=== PATIENT | male | born 1970 | race Caucasian/White ===

== ENCOUNTER 2022-01-02 22:59 | Observation (INO) ==
[2022-01-03] MEDS ORDERED: Perflutren Lipid Microsphere 1.3 ML in 0.9 % Sodium Chloride 8.7 ML IVP PRN (03:30)
[2022-01-03 03:58] LABS: Hematocrit 41.4 % (37.5-50.1); Hemoglobin 14.2 g/dL (12.9-16.9); Mean Corpuscular HGB Conc 34.3 g/dL (31.6-35.5); Mean Corpuscular Hemoglobin 32.1 pg (28.0-33.3); Mean Corpuscular Volume 93.7 fL (83.0-100.0); Mean Platelet Volume 9.6 fL (9.4-12.4); Platelet Count 129 K/mcL (140-400); Red Blood Count 4.42 M/mcL (4.19-5.50); Red Cell Distribution Width 12.6 % (11.5-14.5); White Blood Count 13.5 K/mcL (4.3-11.1)
[2022-01-03] MEDS ORDERED: Naloxone 0.4 MG/ML INJ IVP PRN (04:16)
[2022-01-03] MEDS ORDERED: Ondansetron 4 MG/2 ML VIAL IVP PRN (04:27)
[2022-01-03] MEDS ORDERED: *HR* LORazepam 2 MG/ML VIAL IVP ONE (04:28)
[2022-01-03 05:08] LABS: BUN/Creatinine Ratio 17 (6-26); Blood Urea Nitrogen 13 mg/dL (6-20); C-Reactive Protein 11 mg/L (Less than 10); Calcium 8.8 mg/dL (8.6-10.3); Carbon Dioxide 22 mEq/L (23-29); Chloride 112 mEq/L (98-107); Chol/HDL Ratio 2.8 (0-4.9); Cholesterol 108 mg/dL (< 200); Creatine Kinase 14975 Units/L (30-223); Glucose 97 mg/dL (70-105); HDL Cholesterol 39 mg/dL (40-59); LDL Cholesterol,Calculated 55 mg/dL (< 100); Magnesium 1.6 mg/dL (1.6-2.6); Osmolality,Calculated 288 (280-300); Potassium 4.1 mEq/L (3.5-5.1); Sodium 139 mEq/L (136-145); Triglycerides 70 mg/dL (< 150); eGFR For African Americans > 60 (> 60); eGFR For Non-African Americans > 60 (> 60)
[2022-01-03] MEDS ORDERED: 0.9 % Sodium Chloride 1,000 ML IVC SCH (05:15)
[2022-01-03 06:23] LABS: Estimated Average Glucose 97 mg/dl
[2022-01-03] MEDS ORDERED: DALFAMPRIDINE 10 MG PO SCH (09:00)
[2022-01-03] MEDS ORDERED: *HR* LORazepam 2 MG/ML VIAL IVP PRN (10:30)
[2022-01-03] MEDS: 0.9 % Sodium Chloride 1,000 ML IVC SCH ×2 (12:20→20:28)
[2022-01-03] MEDS: Aspirin Enteric Coated 81 MG Tablet PO SCH (12:23)
[2022-01-03] MEDS ORDERED: Isovue-370 500 ML BOTTLE IVP ONE (13:10)
[2022-01-03] MEDS ORDERED: 0.9 % Sodium Chloride 1,000 ML IVC ONE (13:42)
[2022-01-03 17:01] LABS: Basophils % 0.3 %; Eosinophils # 0.2 K/mcL (0.0-0.6); Eosinophils % 1.6 %; Immature Granulocytes % 0.4 % (0-4); Lymphocytes % 17.9 %; Mean Corpuscular HGB Conc 34.2 g/dL (31.6-35.5); Mean Corpuscular Hemoglobin 32.4 pg (28.0-33.3); Mean Corpuscular Volume 94.8 fL (83.0-100.0); Monocytes # 1.1 K/mcL (0.0-1.3); Monocytes % 9.5 %; Neutrophils # 7.9 K/mcL (1.6-8.9); Platelet Count 121 K/mcL (140-400); Red Blood Count 4.01 M/mcL (4.19-5.50); Red Cell Distribution Width 12.8 % (11.5-14.5); Segmented Neutrophils % 70.3 %; White Blood Count 11.2 K/mcL (4.3-11.1)
[2022-01-03 17:35] LABS: BUN/Creatinine Ratio 17 (6-26); Blood Urea Nitrogen 16 mg/dL (6-20); Calcium 8.1 mg/dL (8.6-10.3); Carbon Dioxide 22 mEq/L (23-29); Chloride 113 mEq/L (98-107); Creatine Kinase 9056 Units/L (30-223); Glucose 86 mg/dL (70-105); Osmolality,Calculated 288 (280-300); Potassium 4.5 mEq/L (3.5-5.1); Sodium 139 mEq/L (136-145); eGFR For African Americans > 60 (> 60); eGFR For Non-African Americans > 60 (> 60)
[2022-01-03] MEDS: DALFAMPRIDINE 10 MG PO SCH (17:53)
[2022-01-04] MEDS: 0.9 % Sodium Chloride 1,000 ML IVC SCH (00:12)
[2022-01-04 06:21] LABS: Hematocrit 39.8 % (37.5-50.1); Hemoglobin 13.6 g/dL (12.9-16.9); Mean Corpuscular HGB Conc 34.2 g/dL (31.6-35.5); Mean Corpuscular Hemoglobin 32.1 pg (28.0-33.3); Mean Corpuscular Volume 93.9 fL (83.0-100.0); Mean Platelet Volume 9.7 fL (9.4-12.4); Platelet Count 104 K/mcL (140-400); Red Blood Count 4.24 M/mcL (4.19-5.50); Red Cell Distribution Width 12.9 % (11.5-14.5); White Blood Count 10.2 K/mcL (4.3-11.1)
[2022-01-04 06:41] LABS: BUN/Creatinine Ratio 12 (6-26); Blood Urea Nitrogen 9 mg/dL (6-20); Calcium 8.6 mg/dL (8.6-10.3); Carbon Dioxide 24 mEq/L (23-29); Chloride 113 mEq/L (98-107); Glucose 93 mg/dL (70-105); Osmolality,Calculated 286 (280-300); Potassium 3.8 mEq/L (3.5-5.1); Sodium 139 mEq/L (136-145); eGFR For African Americans > 60 (> 60); eGFR For Non-African Americans > 60 (> 60)
[2022-01-04] MEDS: Aspirin Enteric Coated 81 MG Tablet PO SCH (08:33)
[2022-01-04] MEDS: DALFAMPRIDINE 10 MG PO SCH (08:34)
[2022-01-04 09:46] LABS: Creatine Kinase 6113 Units/L (30-223)
[2022-01-04 11:50] VITALS: BP 108/68; PULSE 73; TEMP 98.2; O2SAT 96
[2022-01-04] MEDS ORDERED: DALFAMPRIDINE 10 MG PO SCH (21:00)
== END 2022-01-04 15:15 | disposition home or self-care (01) ==
LOC: 3BNU → SUATTDRO 01-03 02:23
PROVIDERS: ADMIT Internal Medicine; ATTEND Nurse Practitioner